=== PATIENT | male | born 1955 | race Caucasian/White ===

== ENCOUNTER 2017-10-02 15:44 | Emergency (ER) | payer MEDICARE ==
[~2017-10-02] VITALS: Ht 180.3 cm; Wt 80.7 kg
[~2017-10-02 15:44] MED LIST: ALLOPURINOL 30300 M3; AMITRIPTYLINE H25 M2 PO; ANTIVERT25 MG PO; CARISOPRODOL 3350 MG PO; CELEXA 20 MG TA20 M1; DEPAKOTE 250MG250 M1 PO; IMITREX 25 MG T25 M1 PO; LIPITOR; RITALIN5 MG PO; TRAMADOL 50 MG50 MG PO; VITAMIN D-32000 UNIT; WELLBUTRIN XL150 MG PO
[2017-10-02] MEDS ORDERED: BACTRIM DS TAB1 EAC1 PO (17:25)
[2017-10-02 17:35] VITALS: BP 139/89
== END 2017-10-02 17:39 | disposition home or self-care (01) ==
LOC: M.ERS 15:44
DX: S61.217A Laceration without foreign body of left little finger without damage to nail, initial encounter (principal); I10 Essential (primary) hypertension; M10.9 Gout, unspecified; F41.9 Anxiety disorder, unspecified; W22.8XXA Striking against or struck by other objects, initial encounter; Y93.89 Activity, other specified; Y92.89 Other specified places as the place of occurrence of the external cause; Y99.8 Other external cause status